=== PATIENT | male | born 1980 | race African-American/Black ===

== ENCOUNTER 2016-09-03 10:21 | Emergency (ER) | payer BC ==
[2016-09-03 10:30] VITALS: BP 140/96; PULSE 75; RESP 17; TEMP 97.6
--- NOTE | 2016-09-03 10:47 | ED ---
General Adult HPI - General Chief complaint: Extremity Injury, Lower Stated complaint: Ankle injury Time Seen by Provider: 09/03/16 10:30 Source: patient, RN notes reviewed Mode of arrival: ambulatory Limitations: no limitations - History of Present Illness Initial comments: This is a 36-year-old male who presents to the emergency department complaining of left lateral ankle pain. Patient states at 5:00 this morning he twisted it and since his been causing him some pain. Patient states heonly very slight swelling. Patient denies any foot pain. Patient denies any medial ankle pain. Patient denies any posterior ankle pain. Patient denies any upper leg pain. Patient denies any other complaints at this time. - Related Data Home Medications Medication Instructions Recorded Confirmed No Known Home Medications [No 01/19/14 09/03/16 Known Home Medications] Allergies Allergy/AdvReac Type Severity Reaction Status Date / Time No Known Allergies Allergy Verified 09/03/16 10:53 Review of Systems ROS Statement: Those systems with pertinent positive or pertinent negative responses have been documented in the HPI. ROS Other: All systems not noted in ROS Statement are negative. Past Medical History Past Medical History: No Reported History History of Any Multi-Drug Resistant Organisms: None Reported Additional Past Surgical History / Comment(s): trach Past Psychological History: No Psychological Hx Reported Smoking Status: Current every day smoker Past Alcohol Use History: None Reported Past Drug Use History: Marijuana General Exam - General Exam Comments Initial Comments: GENERAL Patient is well-developed and well-nourished. Patient is in mild distress. EYES Patient's pupils are equal and round. Extraocular motion is intact SKIN Unremarkable NEURO The patient is alert and oriented 3 PYSCH Patient has normal interpersonal interactions. MUSCULOSKELETAL Patient's left lateral ankle is mildly swollen and slightly tender. Limitations: no limitations Course Vital Signs 09/03/16 10:26 Temperature 97.6 F Pulse Rate 75 Respiratory 17 Rate Blood Pressure 140/96 O2 Sat by Pulse 97 Oximetry Medical Decision Making - Medical Decision Making X-ray shows no acute fracture Disposition Clinical Impression: Ankle sprain Disposition: HOME SELF-CARE Instructions: Ankle Sprain (ED) Referrals: None,Stated [Primary Care Provider] - 1-2 days Time of Disposition: 11:16
--- NOTE | 2016-09-03 11:13 | XR ---
EXAMINATION TYPE: XR ankle complete LT DATE OF EXAM: 09/03/2016 11:08 AM CLINICAL HISTORY: Twisting injury with pain. TECHNIQUE: Frontal, lateral and oblique images of the left ankle are obtained. COMPARISON: None. FINDINGS: There is no acute fracture/dislocation evident in the left ankle. The ankle mortise appea rs within normal limits. The overlying soft tissue appears unremarkable. IMPRESSION: There is no acute fracture or dislocation in the left ankle.
== END 2016-09-03 11:26 | disposition home or self-care (01) ==
LOC: EC 10:21
DX: S93.402A Sprain of unspecified ligament of left ankle, initial encounter (principal); X50.1XXA Overexertion from prolonged static or awkward postures, initial encounter; F17.200 Nicotine dependence, unspecified, uncomplicated
CPT/HCPCS: 99283

== ENCOUNTER 2016-10-11 15:10 | Emergency (ER) | payer BC ==
[2016-10-11 15:37] VITALS: BP 123/83; PULSE 74; RESP 18; TEMP 98
--- NOTE | 2016-10-11 15:59 | ED ---
ENT HPI - General Chief complaint: ENT Stated complaint: Throat Pain Time Seen by Provider: 10/11/16 15:39 Source: patient, RN notes reviewed Mode of arrival: ambulatory Limitations: no limitations - History of Present Illness Initial comments: Patient is a 36-year-old male chief complaint of upper respiratory symptoms for approximately one day. Patient reports is her taking decongestant such as Tamiflu, Mucinex and use spray and Motrin Tylenol for fevers. Patient reports he's had a history of sick contacts with diagnosed with flu. Patient reports that he needs a note for work. Patient denies any nausea vomiting chest pain shortness breath. Patient denies any productive cough. Patient states that he is a smoker. Patient denies any recent shortness of breath, chest pain, back pain, abdominal pain, nausea vomiting, numbness or tingling, dysuria or hematuria, constipation or diarrhea, headaches or visual changes, or any other current symptoms - Related Data Home Medications Medication Instructions Recorded Confirmed No Known Home Medications [No 01/19/14 10/11/16 Known Home Medications] Allergies Allergy/AdvReac Type Severity Reaction Status Date / Time No Known Allergies Allergy Verified 10/11/16 15:48 Review of Systems ROS Statement: Those systems with pertinent positive or pertinent negative responses have been documented in the HPI. ROS Other: All systems not noted in ROS Statement are negative. 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 No acute distress. Limitations: no limitations General appearance: alert, in no apparent distress Head exam: Present: atraumatic, normocephalic, normal inspection Eye exam: Present: normal appearance, PERRL, EOMI. Absent: scleral icterus, conjunctival injection, periorbital swelling ENT exam: Present: normal exam, mucous membranes moist Neck exam: Present: normal inspection. Absent: tenderness, meningismus, lymphadenopathy Respiratory exam: Present: normal lung sounds bilaterally. Absent: respiratory distress, wheezes, rales, rhonchi, stridor Cardiovascular Exam: Present: regular rate, normal rhythm, normal heart sounds. Absent: systolic murmur, diastolic murmur, rubs, gallop, clicks GI/Abdominal exam: Present: soft, normal bowel sounds. Absent: distended, tenderness, guarding, rebound, rigid Extremities exam: Present: normal inspection, full ROM, normal capillary refill. Absent: tenderness, pedal edema, joint swelling, calf tenderness Back exam: Present: normal inspection Neurological exam: Present: alert, oriented X3, CN II-XII intact Psychiatric exam: Present: normal affect, normal mood Skin exam: Present: warm, dry, intact, normal color. Absent: rash Course Vital Signs 10/11/16 15:34 Temperature 98.0 F Pulse Rate 74 Respiratory 18 Rate Blood Pressure 123/83 O2 Sat by Pulse 99 Oximetry Medical Decision Making - Medical Decision Making Patient is 36-year-old male chief complaint of upper respiratory symptoms for approximately one day. Patient reports he wants testing at this time. Patient states that he needs a note for work. He is taking TheraFlu, Motrin, for spheres as well as decongestant such as Mucinex. Patient reports he only passed work tomorrow and goes back to work on Friday. Patient states he needs a work note for just today. Patient has been advised on return parameters and is discussed following up with primary care provider if symptoms continue persist after the weekend. Patient's understands treatment plan will comply. Disposition Clinical Impression: Flu-like symptoms Disposition: HOME SELF-CARE Condition: Good Instructions: Influenza (ED) Additional Instructions: Patient denies to follow-up with primary care provider if symptoms continue to persist after 3 more days. Continue to dose Motrin Tylenol every 3-4 hours. Return the emergency department if any worsening signs or symptoms occur. Referrals: Marilyn Carson MD [Primary Care Provider] - 1-2 days Time of Disposition: 15:58
== END 2016-10-11 16:14 | disposition home or self-care (01) ==
LOC: EC 15:10
DX: J11.1 Influenza due to unidentified influenza virus with other respiratory manifestations (principal); F17.200 Nicotine dependence, unspecified, uncomplicated
CPT/HCPCS: 99282

== ENCOUNTER 2017-02-25 10:26 | Emergency (ER) | payer BC ==
[2017-02-25 10:31] VITALS: RESP 16
--- NOTE | 2017-02-25 11:36 | ED ---
General Adult HPI - General Chief complaint: ENT Stated complaint: sore throat Time Seen by Provider: 02/25/17 10:57 Source: patient, RN notes reviewed Mode of arrival: ambulatory Limitations: no limitations - History of Present Illness Initial comments: Patient 36-year-old male who presents emergency room today with chief complaint of a sore throat. He does admit that symptoms started last night. He does admit that it hurts when he swallows.Please use medication as discussed. Please follow-up with family doctor in the next 2 days of symptoms have not improved. Please return to emergency room if the symptoms increase or worsen or for any other concerns. Does admit to a mild cough. Denies any other complaints or symptoms at this time. Patient denies any recent fever, chills, shortness of breath, chest pain, back pain, abdominal pain, nausea or vomiting, numbness or tingling, dysuria or hematuria, constipation or diarrhea, headaches or visual changes, or any other complaints. - Related Data Home Medications Medication Instructions Recorded Confirmed No Known Home Medications [No 01/19/14 02/25/17 Known Home Medications] Allergies Allergy/AdvReac Type Severity Reaction Status Date / Time No Known Allergies Allergy Verified 02/25/17 11:06 Review of Systems ROS Statement: Those systems with pertinent positive or pertinent negative responses have been documented in the HPI. ROS Other: All systems not noted in ROS Statement are negative. 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 Eye: Pupils are equal, round and reactive to light, extra-ocular movements are intact. No nystagmus. There is normal conjunctiva bilaterally. No signs of icterus. Ears, nose, mouth and throat: There are moist mucous membranes and no oral lesions. Uvula midline. Patient swallows without difficulty. Mild redness to the posterior pharynx. No exudate. Neck: The neck is supple, there is no tenderness or JVD. Cardiovascular: There is a regular rate and rhythm. No murmur, rub or gallop is appreciated. Respiratory: Lungs are clear to auscultation, respirations are non-labored, breath sounds are equal. No wheezes, stridor, rales, or rhonchi. Musculoskeletal: Normal ROM, no tenderness. Strength 5/5. Sensation intact. Pulses equal bilaterally 2+. Neurological: A&O x 3. CN II-XII intact, There are no obvious motor or sensory deficits. Coordination appears grossly intact. Speech is normal. Skin: Skin is warm and dry and no rashes or lesions are noted. Psychiatric: Cooperative, appropriate mood & affect, normal judgment. Limitations: no limitations Course Vital Signs 02/25/17 10:29 Temperature 97.0 F L Pulse Rate 79 Respiratory 16 Rate Blood Pressure 135/89 O2 Sat by Pulse 98 Oximetry Medical Decision Making - Medical Decision Making Strep test negative. Patient advised most likely viral illness. Advised to use [id number] medications. Advised return if symptoms increase or worsen or for any other concerns. - Lab Data Lab Results 02/25/17 Range/Units 10:51 Group A Strep Rapid Negative (Negative) Disposition Clinical Impression: Acute pharyngitis Disposition: HOME SELF-CARE Condition: Good Instructions: Pharyngitis (ED) Additional Instructions: Please use medication as discussed. Please follow-up with family doctor in the next 2 days of symptoms have not improved. Please return to emergency room if the symptoms increase or worsen or for any other concerns. Referrals: Marilyn Carson MD [Primary Care Provider] - 1-2 days Time of Disposition: 11:34
[2017-02-25 11:43] VITALS: BP 122/86; PULSE 71; TEMP 97
== END 2017-02-25 12:13 | disposition home or self-care (01) ==
LOC: EC 10:26
DX: J02.9 Acute pharyngitis, unspecified (principal); F17.200 Nicotine dependence, unspecified, uncomplicated
CPT/HCPCS: 87081; 87430; 99283